=== PATIENT | male | born 1960 | race Caucasian/White ===

== ENCOUNTER 2024-12-14 15:41 | Emergency (ER) | payer MEDICARE ==
[~2024-12-14] VITALS: Ht 172.7 cm; Wt 67.0 kg
[2024-12-14 15:58] VITALS: BP 123/76
[2024-12-14] MEDS ORDERED: ONDANSETRON HYDR4 MG PO (16:06)
[2024-12-14] MEDS ORDERED: PREDNISOLO PO (16:06)
[2024-12-14] MEDS ORDERED: LACTULOSE SYRUP1 ML (16:06)
[2024-12-14] MEDS ORDERED: MORPHINE S100 MG/5 M PO (16:06)
[2024-12-14] MEDS ORDERED: ALDACTONE 25MG25 MG PO (16:06)
[2024-12-14] MEDS ORDERED: SEPTRA DS 8001 TAB PO (16:06)
[2024-12-14] MEDS ORDERED: LORAZEPAM INT2 MG/ML PO (16:07)
== END 2024-12-14 16:57 | disposition home or self-care (01) ==
LOC: ED 15:41
DX: S49.91XA Unspecified injury of right shoulder and upper arm, initial encounter (principal); W19.XXXA Unspecified fall, initial encounter; Y92.129 Unspecified place in nursing home as the place of occurrence of the external cause